=== PATIENT | female | born 1990 | race Caucasian/White ===

== ENCOUNTER 2024-11-25 10:16 | Emergency (ER) | payer SELFPAY ==
[~2024-11-25] VITALS: Ht 175.3 cm; Wt 59.0 kg
--- NOTE | 2024-11-25 11:20 | HMCIMG ---
US OB <14 WEEKS HISTORY: Abdominal pain COMPARISON: None TECHNIQUE: Obstetrical ultrasound study was performed. FINDINGS: The uterus measures 7.7 x 4.4 x 5.2 centimeter. Both ovaries are not seen. There is single intrauterine gestation with estimated gestational age of 6 weeks and 3 days. heart rate is 123 beats per minute. No fluid is seen in the cul-de-sac. IMPRESSION: 1. There is single intrauterine gestation with estimated gestational age of 6 weeks and 3 days. heart rate is 123 beats per minute.
[2024-11-25] MEDS: acetaMINOPHEN 500 MG TABLET PO ONE (11:31)
[2024-11-25 11:47] LABS: BASOPHILS # (AUTO) 0.01 K/uL (0.00-0.20); BASOPHILS % (AUTO) 0.4 % (0.0-5.0); EOSINOPHILS # (AUTO) 0.07 K/uL (0.00-0.70); EOSINOPHILS % (AUTO) 2.9 % (0.0-8.0); HEMATOCRIT 38.8 % (36-48); LYMPHOCYTES # (AUTO) 0.4 K/uL (1.0-4.8); MEAN CORPUSCULAR HEMOGLOBIN 30.2 pg (27.0-33.0); MEAN CORPUSCULAR HGB CONC 33.2 g/dL (32.0-36.0); MEAN CORPUSCULAR VOLUME 90.9 fL (79-99); MONOCYTES # (AUTO) 0.3 K/uL (0.1-1.0); MONOCYTES % (AUTO) 12.1 % (3.0-13.0); NEUTROPHILS # (AUTO) 1.6 K/uL (1.8-7.7); NEUTROPHILS % (AUTO) 66.6 % (40.0-77.0); PLATELET COUNT (AUTO) 188 K/uL (130-400); RED BLOOD CELL COUNT(AUTO) 4.27 MIL/uL (4.00-5.50); RED CELL DISTRIBUTION WIDTH 13.2 % (11.0-15.5); WHITE BLOOD COUNT (AUTO) 2.4 K/uL (4.8-10.8)
[2024-11-25 11:55] LABS: CREATININE 0.7 mg/dL (0.5-1.0); POTASSIUM 3.4 mmol/L (3.5-5.1)
[2024-11-25 11:55] LABS: INFLUENZA TYPE A Negative For Type A (NEGATIVE); INFLUENZA TYPE B Negative For Type B (NEGATIVE)
[2024-11-25 12:02] LABS: ALBUMIN 3.7 g/dL (3.5-5.0); BILIRUBIN,DIRECT 0.1 mg/dL (0.0-0.3); BILIRUBIN,TOTAL 0.2 mg/dL (0.2-1.0); TOTAL PROTEIN, SERUM 7.4 g/dL (6.0-8.3)
[2024-11-25 12:20] LABS: APPEARANCE,URINE CLOUDY (CLEAR); BACTERIA,URINE RARE /HPF (None Seen); BILIRUBIN,URINE NEGATIVE (NEGATIVE); COLOR,URINE YELLOW (YELLOW); GLUCOSE, URINE (UA) NEGATIVE (NEGATIVE); KETONES,URINE 100 mg/dL (NEGATIVE); LEUKOCYTE ESTERASE ,URINE NEGATIVE Leu/uL (NEGATIVE); MUCUS,URINE MANY LPF (None Seen); NITRATE,URINE NEGATIVE (NEGATIVE); OCCULT BLOOD,URINE SMALL (NEGATIVE); PROTEIN,URINE 30 mg/dL (NEGATIVE); SQUAMOUS EPITHELIAL CELL,UR MOD /HPF (0-2)
[2024-11-25 12:37] LABS: COVID19 (SARS ANTIGEN RAPID) PRESUMPTIVE NEGATIVE (NEGATIVE)
[2024-11-25 12:41] LABS: LYMPHOCYTES % (MANUAL) 19 % (22-44); MONOCYTES % (MANUAL) 3 % (2-9); REACTIVE LYMPHOCYTES 4 % (0-0); SEGMENTED NEUTROPHILS % 74 % (40-70); TOTAL CELLS COUNTED 100
[2024-11-25 12:42] LABS: MAN.DIFF COMMENT-IMPRESSION MANUAL DIFFERENTIAL
[2024-11-25 12:46] LABS: PLATELET MORPHOLOGY COMMENT ADEQUATE; WBC MORPHOLOGY REACTIVE LYMPHS 1+
[2024-11-25] MEDS ORDERED: AMOX500T2 PO (12:59)
[2024-11-25] MEDS: PoTASSium BIcarbonate/CIT AC 25 MEQ TABLET.EFF PO ONE (13:00)
--- NOTE | 2024-11-25 13:00 | ERN ---
General Chief Complaint: Vomiting in Stated Complaint: ABDONIMAL PAIN PREGANANT SINCE LAST NIGHT Time Seen by MD: 10:33 Time Seen by Midlevel: 10:33 Source: patient History of Present Illness Initial Comments 34-year-old female who presents to the emergency department due to abdominal pain onset last night. Patient reports nausea, body aches, headache, sore throat. Denies fevers, dysuria, vaginal bleeding or further associated symptoms. Patient reports she is currently unknown how many weeks, A0. Denies significant past medical history. Allergies: Coded Allergies: No Known Drug Allergies (Unverified Allergy, Unknown, 11/25/24) Home Meds Active Scripts Amoxicillin (Amoxicillin) 500 Mg Tablet, 1 TAB PO BID for 10 Days, #20 TAB 0 Refills Prov:DAVID CHOUDHURY 11/25/24 Past Medical History Past Medical History: No Pertinent History Past Surgical History: Other Surgical History Other: LEEP SX Female( History) LMP: Oct 09, 2024 : 2 Para: 1 Aborts: 0 ROS Dictation Constitutional: Positive for body aches Negative for fever,chills, and weight loss Eyes: Negative for injury, pain,redness, and discharge ENT: Positive sore throat. Negative for injury,pain or swelling Cardiovascular: Negative for chest pain, palpitations, and edema Respiratory: Negative for shortness of breath, cough, and wheezing, Abdomen/GI: Positive for abdominal pain, nausea Negative for vomiting, diarrhea, and constipation Back: Negative for injury and pain : Negative for painful urination, bleeding or discharge MS/Extremity: Negative for injury and deformity Skin: Negative for rash, and discoloration Neuro: Positive headache Negative for weakness, numbness, tingling, and seizure Psych: Negative for suicide ideation, homicidal ideation, and hallucinations Physical Exam Physical Exam Dictation General: awake, alert, no acute distress Head/Face: Normocephalic, atraumatic Eyes: PERRL, EOMI, normal conjunctiva ENT: oral cavity clear, oral mucosa moist Neck: Supple, normal range of motion Cardiovascular: RRR, normal S1/S2 Respiratory: CTAB, no respiratory distress, no rales or wheezes Abdomen: Soft, non-tender, non-distended, no guarding or rebound. Skin: Warm, dry, normal turgor, no rash MS/Extremity: Pulses equal, no cyanosis, neurovascular intact, FROM Neuro: COAx4, GCS 15, strength 5/5, CN 2-12 intact, normal cerebellar exam, normal gait Psych: Normal behavior, mood, and affect normal Results Laboratory and Microbiology Lab and Micro Result Laboratory Tests Test 11/25/24 11:00 11/25/24 11:30 11/25/24 11:41 11/25/24 12:02 Influenza Type A Antigen Negative For Type A Influenza Type B Antigen Negative For Type B SARS-CoV-2 Antigen (Rapid) PRESUMPTIVE NEGATIVE Urine Color YELLOW (YELLOW) Urine Appearance CLOUDY (CLEAR) H Urine pH 6.0 (5.0-8.0) Urine Specific [place] 1.032 (1.001-1.031) Urine Protein 30 mg/dL (NEGATIVE) H Urine Glucose (UA) NEGATIVE mg/dL (NEGATIVE) Urine Ketones 100 mg/dL (NEGATIVE) H Urine Occult Blood SMALL (NEGATIVE) H Urine Nitrate NEGATIVE (NEGATIVE) Urine Bilirubin NEGATIVE mg/dL (NEGATIVE) Urine Urobilinogen 2.0 mg/dL (0.2-1.0) H Urine Leukocyte Esterase NEGATIVE [place]/uL Urine RBC 2-5 /HPF (0-1) H Urine WBC 2-5 /HPF (0-1) H Urine Squamous Epithelial Cells MOD /HPF (0-2) Urine Bacteria RARE /HPF (None Seen) White Blood Count 2.4 K/uL (4.8-10.8) L Red Blood Count 4.27 MIL/uL (4.00-5.50) Hemoglobin 12.9 g/dL (12.0-16.0) Hematocrit 38.8 % (36-48) Mean Corpuscular Volume 90.9 fL (79-99) Mean Corpuscular Hemoglobin 30.2 pg (27.0-33.0) Mean Corpuscular Hemoglobin Concent 33.2 g/dL (32.0-36.0) Red Cell Distribution Width 13.2 % (11.0-15.5) Platelet Count 188 K/uL (130-400) Mean Platelet Volume 10.4 fL (7.5-10.5) Immature Granulocyte % (Auto) 0.0 % (0-1) Neutrophils (%) (Auto) 66.6 % (40.0-77.0) Lymphocytes (%) (Auto) 18.0 % (21.0-51.0) L Monocytes (%) (Auto) 12.1 % (3.0-13.0) Eosinophils (%) (Auto) 2.9 % (0.0-8.0) Basophils (%) (Auto) 0.4 % (0.0-5.0) Neutrophils # (Auto) 1.6 K/uL (1.8-7.7) L Lymphocytes # (Auto) 0.4 K/uL (1.0-4.8) L Monocytes # (Auto) 0.3 K/uL (0.1-1.0) Eosinophils # (Auto) 0.07 K/uL (0.00-0.70) Basophils # (Auto) 0.01 K/uL (0.00-0.20) Absolute Immature Granulocyte (auto 0.00 K/uL (0-1) Segmented Neutrophils % 74 % (40-70) H Lymphocytes % (Manual) 19 % (22-44) L Monocytes % (Manual) 3 % (2-9) Nucleated Red Blood Cells 0.0 % (0.0-0.19) Differential Comment MANUAL DIFFERENTIAL Reactive Lymphocytes 4 % (0-0) H White Cell Morphology Comment REACTIVE LYMPHS 1+ Platelet Morphology Comment ADEQUATE Red Blood Cell Morphology NORMAL Sodium Level 136 mmol/L (136-145) Potassium Level 3.4 mmol/L (3.5-5.1) L Chloride Level 101 mmol/L (101-111) Carbon Dioxide Level 26 mmol/L (21-32) Blood Urea Nitrogen 9 mg/dL (7-18) Creatinine 0.7 mg/dL (0.5-1.0) Glomerular Filtration Rate Calc 118 mL/min (>90) Random Glucose 96 mg/dL (70-105) Total Calcium 8.5 mg/dL (8.5-10.1) Total Bilirubin 0.2 mg/dL (0.2-1.0) Direct Bilirubin 0.1 mg/dL (0.0-0.3) Aspartate Amino Transf (AST/SGOT) 18 U/L (10-37) Alanine Aminotransferase (ALT/SGPT) 19 U/L (12-78) Alkaline Phosphatase 53 U/L (50-136) Total Protein 7.4 g/dL (6.0-8.3) Albumin 3.7 g/dL (3.5-5.0) Group A Streptococcus Rapid positive (NEGATIVE) *A Labs Reviewed?: Yes EKG/XRAY/US/CT/MRI Ultrasound Comment REASON: abdominal pain ORDERING PHYSICIAN: DAVID CHOUDHURY PROCEDURE: OB <14 - US OB <14 WEEKS US OB <14 WEEKS HISTORY: Abdominal pain COMPARISON: None TECHNIQUE: Obstetrical ultrasound study was performed. FINDINGS: The uterus measures 7.7 x 4.4 x 5.2 centimeter. Both ovaries are not seen. There is single intrauterine gestation with estimated gestational age of 6 weeks and 3 days. heart rate is 123 beats per minute. No fluid is seen in the cul-de-sac. IMPRESSION: 1. There is single intrauterine gestation with estimated gestational age of 6 weeks and 3 days. heart rate is 123 beats per minute. DICTATED BY: ZUHAIR DAMIAN MD DATE: 11/25/24 1116 MDM MDM: Differential diagnosis: Viral illness, strep, UTI Rationale: 34-year-old female who presents to the emergency department due to abdominal pain onset last night. Patient reports nausea, body aches, headache, sore throat. Denies fevers, dysuria, vaginal bleeding or further associated symptoms. Patient reports she is currently unknown how many weeks, A0. Denies significant past medical history. Per physical examination patient is in no acute distress, nonlabored breathing, abdomen is soft nontender. Labs obtained indicate WBCs 2.4, hypokalemia 3.4, UA negative for urinary tract infection, serology negative for influenza and SARs, positive strep. Ultrasound obtained shows single intrauterine at six weeks three days gestation, heart rate 123 bpm. Patient was administered acetaminophen in the ED and on re-examination verbalized pain had resolved. Patient was educated on findings and diagnosis. Antibiotics prescribed for outpatient treatment. Advised to follow up with PCP and OBGYN. Patient verbalized understanding. Patient stable for discharge. There are no social concerns with this patient. I independently interpreted the test that were performed, results were reviewed by me and considered findings on radiology if ordered. Medical management and examination interpretation discussions were had by me with other qualified healthcare professionals as indicated for the patient's care. ED Course Orders Procedure Category Date Status Time Cbc With Differential LAB 11/25/24 Complete 10:43 Basic Metabolic Panel LAB 11/25/24 Complete 10:43 Urinalysis LAB 11/25/24 Complete W/Microscopic 10:43 Hepatic Function Panel LAB 11/25/24 Complete 10:43 Us Ob <14 Weeks US 11/25/24 Resulted 10:43 Covid19 (Sars Antigen LAB 11/25/24 Complete Rapid) 10:43 Influenza Type A & B, LAB 11/25/24 Complete Rapid 10:43 Acetaminophen 500mg PHA 11/25/24 Complete Tab (Tylenol 500mg T 11:00 Manual Differential LAB 11/25/24 Complete 11:41 Rapid (Group A Strep) LAB 11/25/24 Complete 12:06 Potassium Bicarb/Cit PHA 11/25/24 Complete Ac 25meq (K-Lyte Ta 13:00 Current Medications Medications (Trade) Dose Ordered Sig/Swapnil Route PRN Reason Start Time Stop Time Status Last Admin Dose Admin Acetaminophen (TYLenol 500MG TAB) 1,000 mg ONCE ONCE PO 11/25/24 11:00 11/25/24 11:01 DC 11/25/24 11:31 Potassium Bicarbonate (K-Lyte Tablet Eff 25 Meq Tablet.eff) 25 meq ONCE ONCE PO 11/25/24 13:00 11/25/24 13:01 DC 11/25/24 13:00 Vital Signs Date Time Temp Pulse Resp B/P (MAP) Pulse Ox O2 Delivery O2 Flow Rate FiO2 11/25/24 13:01 98.2 95 16 110/63 97 Room Air* 0 21 11/25/24 10:53 98.2 102 16 105/64 97 Room Air 0 11/25/24 10:53 98.2 102 16 105/64 97 Room Air* 0 21 DX & DISP Disposition: Discharge Departure Impression: Primary Impression: Strep pharyngitis Condition: Stable Scripts Amoxicillin (Amoxicillin) 500 Mg Tablet 1 TAB PO BID for 10 Days, #20 TAB 0 Refills Prov: DAVID CHOUDHUYR 11/25/24 Additional Instructions: Discharge home. Rest. Follow up with primary care in 24 hours. Return to the ER for any acute changes or worsening symptoms. If any medications were prescribed take as directed. Okay to continue home medications unless otherwise discussed during your visit in the emergency room today. Patient was also advised to follow-up with primary care physician in 1 to 2 days for continued monitoring. Referrals: SELF,REFERRAL (PCP) ARCHIE SALCEDO MD I performed the substantive portion of the visit. I have reviewed and personally made and approve the management plan that is documented in the notes by myself or the [facility]. I acknowledge full responsibility for the patient's management plan. DAVID CHOUDHURY Nov 25, 2024 12:59 RUDY REDDY DO November 27, 2024 09:57
[2024-11-25 13:01] VITALS: BP 110/63; PULSE 95; RESP 16; TEMP 98.2; O2SAT 97
== END 2024-11-25 13:28 | disposition home or self-care (01) ==
LOC: EDH 10:16
DX: O99.511 Diseases of the respiratory system complicating pregnancy, first trimester (principal); J02.0 Streptococcal pharyngitis; Z20.822 Contact with and (suspected) exposure to COVID-19; Z3A.01 Less than 8 weeks gestation of pregnancy; Z79.899 Other long term (current) drug therapy; Z98.890 Other specified postprocedural states
CPT/HCPCS: 36415; 76801; 80048; 80076; 81001; 85025; 87426; 87804; 87880; 99284